=== PATIENT | female | born 1980 | race African-American/Black ===

== ENCOUNTER 2016-11-05 11:58 | Emergency (ER) | payer BC, OTHER ==
[~2016-11-05] VITALS: Ht 149.9 cm; Wt 68.0 kg
[2016-11-05 11:58] VITALS: BP 157/99
[2016-11-05] MEDS ORDERED: IV NORMAL SALINE 1000ML BAG 1,000 ML IV SCH (12:41)
[2016-11-05] MEDS ORDERED: PANTOPRAZOLE IV PUSH 40 MG VIAL. IVP ONE (12:45)
[2016-11-05] MEDS ORDERED: ONDANSETRON PF 4 MG/2 ML VIAL. IV ONE (12:45)
[2016-11-05 13:01] LABS: BASO # 0.1 x10^3/uL (0.0-0.2); BASO % 0 % (0-3); EOS % 0 % (0-3); HEMATOCRIT 40.3 % (36.0-47.0); HEMOGLOBIN 13.6 g/dL (12.0-15.5); LYMPH # 1.1 x10^3/uL (1.0-4.8); LYMPH % 6 % (24-48); MEAN CORPUSCULAR HEMOGLOBIN 29 pg (25-35); MEAN CORPUSCULAR HGB CONC 34 g/dL (31-37); MEAN CORPUSCULAR VOLUME 85 fL (79-100); MONO % 1 % (0-9); NEUT % 92 % (31-73); PLATELET COUNT 339 x10^3/uL (140-400); RED BLOOD COUNT 4.75 x10^6/uL (3.50-5.40); RED CELL DISTRIBUTION WIDTH 13.8 % (11.5-14.5); WHITE BLOOD COUNT 18.8 x10^3/uL (4.0-11.0)
[2016-11-05 13:06] LABS: CALCIUM 9.3 mg/dL (8.5-10.1); CREATININE 0.8 mg/dL (0.6-1.0); GFR 99.4; POTASSIUM 3.4 mmol/L (3.5-5.1)
[2016-11-05 13:11] LABS: ALBUMIN 4.1 g/dL (3.4-5.0); ALBUMIN/GLOBULIN RATIO 0.9 (1.0-1.7); TOTAL BILIRUBIN 0.6 mg/dL (0.2-1.0); TOTAL PROTEIN 8.8 g/dL (6.4-8.2)
[2016-11-05 13:19] LABS: NEG OBC SER NEG; POS OBC SER POS
--- NOTE | 2016-11-05 14:13 | PHYS DOC ---
Past Medical History Past Medical History: STD, UTI, Other Past Surgical History: Other Alcohol Use: None Drug Use: None Adult General Chief Complaint Chief Complaint: NAUSEA/VOMITING HPI HPI Patient is a 36 year old female who is complaining of abdominal pain, nausea and vomiting, which began at 6 AM today. Patient states "I got drunk last night " and believes that's why she has these symptoms. She was fine yesterday. She has had multiple episodes of vomiting which improved after she was given Zofran by EMS. No blood in the vomit. Patient states this has happened to her before when she drank too much. Patient's boyfriend is here and says that he thinks it' s because she drank on an empty stomach. Patient has a history of hypertension and has not taken her medication today because she has been too nauseated. She usually does take it daily. No other significant medical history. Review of Systems Review of Systems Constitutional: Denies fever or chills [] Eyes: Denies change in visual acuity, redness, or eye pain [] HENT: Denies nasal congestion or sore throat [] Respiratory: Denies cough or shortness of breath [] Cardiovascular: Complains of pain up the middle of her chest which sounds likely esophageal, it is exacerbated by vomiting and worse after she vomits GI: As in history of present illness : Denies dysuria or hematuria [] Musculoskeletal: Denies back pain or joint pain [] Integument: Denies rash or skin lesions [] Neurologic: Denies headache, focal weakness or sensory changes [] Current Medications Current Medications Current Medications Medications (Trade) Dose Ordered Sig/Ramirez Start Time Stop Time Status Last Admin Dose Admin Ondansetron HCl (Zofran) 4 mg 1X ONCE 11/05/16 12:45 11/05/16 12:54 DC 11/05/16 13:01 4 MG Pantoprazole Sodium (Protonix Vial) 40 mg 1X ONCE 11/05/16 12:45 11/05/16 12:54 DC 11/05/16 12:45 40 MG Potassium Chloride (KCl Oral Soln) 40 meq 1X ONCE 11/05/16 14:15 11/05/16 14:16 DC 11/05/16 14:41 40 MEQ Sodium Chloride (Iv Sodium Chloride 0.9% 1000ml Bag) 1,000 ml @ 1,000 mls/hr Q1H 3/19/17 12:41 11/05/16 13:40 DC 11/05/16 13:01 1,000 MLS/HR Allergies Allergies Allergies Coded Allergies Type Severity Reaction Last Updated Verified No Known Drug Allergies 06/20/15 No Physical Exam Physical Exam Constitutional: Well developed, well nourished, appears to not feel well, alert , mentating normally. HENT: Normocephalic, atraumatic, bilateral external ears normal, nose normal. [] Eyes: conjunctiva normal, no discharge. [] Neck: Normal range of motion, no stridor. [] Cardiovascular:Heart rate regular rhythm, no murmur [] Lungs & Thorax: Bilateral breath sounds clear to auscultation [] Abdomen: Bowel sounds normal, soft, nondistended, mildly tender throughout, no rebound or guarding, no masses, no pulsatile masses. [] Skin: Warm, dry, no erythema, no rash. [] Extremities: No tenderness, no cyanosis, no clubbing, ROM intact, no edema. [] Neurologic: Alert and oriented X 3, normal motor function, normal sensory function, no focal deficits noted. [] Current Patient Data Vital Signs Vital Signs Date Time Temp Pulse Resp B/P Pulse Ox O2 Delivery O2 Flow Rate FiO2 11/05/16 11:58 98.1 82 16 157/99 100 Room Air 98.1 Lab Values Laboratory Tests Test 11/05/16 12:24 White Blood Count 18.8x10^3/uL (4.0-11.0) H Red Blood Count 4.75x10^6/uL (3.50-5.40) Hemoglobin 13.6g/dL (12.0-15.5) Hematocrit 40.3% (36.0-47.0) Mean Corpuscular Volume 85fL (79-100) Mean Corpuscular Hemoglobin 29pg (25-35) Mean Corpuscular Hemoglobin Concent 34g/dL (31-37) Red Cell Distribution Width 13.8% (11.5-14.5) Platelet Count 339x10^3/uL (140-400) Neutrophils (%) (Auto) 92% (31-73) H Lymphocytes (%) (Auto) 6% (24-48) L Monocytes (%) (Auto) 1% (0-9) Eosinophils (%) (Auto) 0% (0-3) Basophils (%) (Auto) 0% (0-3) Neutrophils # (Auto) 17.3x10^3uL (1.8-7.7) H Lymphocytes # (Auto) 1.1x10^3/uL (1.0-4.8) Monocytes # (Auto) 0.3x10^3/uL (0.0-1.1) Eosinophils # (Auto) 0.0x10^3/uL (0.0-0.7) Basophils # (Auto) 0.1x10^3/uL (0.0-0.2) Segmented Neutrophils % 84% (35-66) H Band Neutrophils % 7% (0-9) Lymphocytes % 3% (24-48) L Monocytes % 5% (0-10) Basophils % 1% (0-3) Toxic Granulation Mod Platelet Estimate Adequate (ADEQUATE) Sodium Level 143mmol/L (136-145) Potassium Level 3.4mmol/L (3.5-5.1) L Chloride Level 102mmol/L (98-107) Carbon Dioxide Level 19mmol/L (21-32) L Anion Gap 22 (6-14) H Blood Urea Nitrogen 8mg/dL (7-20) Creatinine 0.8mg/dL (0.6-1.0) Estimated GFR (Cockcroft-Gault) 99.4 BUN/Creatinine Ratio 10 (6-20) Glucose Level 169mg/dL (70-99) H Calcium Level 9.3mg/dL (8.5-10.1) Total Bilirubin 0.6mg/dL (0.2-1.0) Aspartate Amino Transferase (AST) 33U/L (15-37) Alanine Aminotransferase (ALT) 31U/L (14-59) Alkaline Phosphatase 87U/L (46-116) Total Protein 8.8g/dL (6.4-8.2) H Albumin 4.1g/dL (3.4-5.0) Albumin/Globulin Ratio 0.9 (1.0-1.7) L Lipase 120U/L (73-393) Serum Test, Qualitative Negative (NEG) Laboratory Tests 11/05/16 12:24 Laboratory Tests 11/05/16 12:24 EKG EKG 12-lead EKG read by me. Sinus rhythm. Heart rate 63. There are no acute ST or T wave changes indicative of ischemia or infarction. No STEMI. 1302 [] Radiology/Procedures Radiology/Procedures [] Course & Med Decision Making Course & Med Decision Making Pertinent Labs and Imaging studies reviewed. (See chart for details) 36-year-old female who states she got drunk last night presents this morning with nausea, vomiting, and generalized abdominal pain. Discussed with the patient that we will check some labs, give her some pain and nausea medicine and IV fluids. She is agreeable to that plan. Her blood pressure is a little elevated but she has not taken her antihypertensive dose this morning because of her nausea and vomiting. Her potassium is slightly low, likely from the vomiting, she was given an oral dose of potassium. Patient felt much better without any further vomiting after IV nausea medicine and IV fluids. She was able to be discharged with her fianc, advised on clear liquids for the rest of the day, advance slowly. [] Dragon Disclaimer Dragon Disclaimer This electronic medical record was generated, in whole or in part, using a voice recognition dictation system. Departure Departure Impression: Primary Impression: Alcoholic gastritis Additional Impression: Vomiting Disposition: HOME, SELF-CARE Condition: IMPROVED Referrals: HAYES MARRERO MD (PCP) Patient Instructions: Alcohol Problems Additional Instructions: For the rest of today, rest, drink clear fluids such as Sprite or juices. Don't drink any alcohol. Eat small amounts of bland foods such as bananas, canned fruit, oatmeal. Consider getting help for your alcohol intake. You can talk to your primary care doctor or attend an AA meeting. Problem Qualifiers CATERINA GRIGGS MD Nov 05, 2016 14:13
[2016-11-05] MEDS ORDERED: POTASSIUM CHLORIDE 20 MEQ/15 ML ORAL LIQUID. PO ONE (14:15)
[2016-11-05 14:16] LABS: % BASOS 1 % (0-3)
[2016-11-05 14:17] LABS: PLT ESTIMATE ADEQUATE (ADEQUATE); TOXIC GRANULATION MOD
--- NOTE | 2016-11-06 06:27 | EKG ---
[facility] [address] [place] [address] Test Date: 2016-11-05 Test Time: 13:02:19 Pat Name: CHANTALE CHAVIS Department: Room: Gender: F [employer] Supervisor: : [id number] Requested By: CATERINA GRIGGS Order Number: [id number] Reading MD: Measurements Intervals [place] Rate: 63 P: 29 ID: [id number] QRS: 8 QRSD: 96 T: 37 QT: 496 QTc: 511 Interpretive Statements SINUS RHYTHM INCOMPLETE RIGHT BUNDLE BRANCH BLOCK QRS(T) CONTOUR ABNORMALITY CONSIDER ANTEROSEPTAL MYOCARDIAL DAMAGE PROLONGED QT POSSIBLY ABNORMAL ECG RI6.01 No previous ECG available for comparison
== END 2016-11-05 15:10 | disposition home or self-care (01) ==
LOC: ER 11:58
DX: K29.20 Alcoholic gastritis without bleeding (principal); I10 Essential (primary) hypertension
CPT/HCPCS: 36415; 80053; 83690; 84703; 85007; 85027; 93005; 96374; 96375; 99285; C9113; J2405; J7030